=== PATIENT | female | born 1965 | race Caucasian/White ===

== ENCOUNTER 2017-02-14 19:18 | Inpatient (IN) | payer OTHER ==
[~2017-02-14] VITALS: Ht 162.6 cm; Wt 64.4 kg
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
--- NOTE | 2017-02-14 20:06 | NUR ---
X-RAY AT BEDSIDE
[2017-02-14 21:09] LABS: CALCIUM 8.8 mg/dL (8.5-10.1); CARBON DIOXIDE 26.8 mmol/L (21-32); CHLORIDE SERUM 103 mmol/L (98-107); CREATININE SERUM 0.9 mg/dL (0.6-1.0); GFR1 > 60 mL/min; GLUCOSE SERUM 116 mg/dL (74-106); POTASSIUM SERUM 3.6 mmol/L (3.5-5.1); SODIUM SERUM 138 mmol/L (136-145)
[2017-02-14 21:13] LABS: ALBUMIN 3.4 g/dL (3.4-5.0); ALKALINE PHOSPHATASE 45 U/L (46-116); ALT/SGPT 24 U/L (14-59); AST/SGOT 21 U/L (15-37); BILIRUBIN TOTAL 0.31 mg/dL (0.20-1.00); CHOLESTEROL 177 mg/dL (<200); TOTAL PROTEIN, SERUM 6.9 g/dL (6.4-8.2)
[2017-02-14 21:14] LABS: HDL CHOLESTEROL 78 mg/dL (40-60)
--- NOTE | 2017-02-14 21:24 | NUR ---
PT TAKEN TO CT VIA [facility]
--- NOTE | 2017-02-14 21:36 | NUR ---
PT RETURNED FROM CT
[2017-02-14 21:43] LABS: AMPHETAMINE QUAL UR NONE DETECTED (NEG <=1000)
--- NOTE | 2017-02-14 22:49 | NUR ---
PT AAOX4, BREATHING EVEN AND UNLABORED. PT IN NO ACUTE DISTRESS. FAMILY BY BEDSIDE.
--- NOTE | 2017-02-14 22:49 | NUR ---
MEDICATED PT PER E-MAR. PT TOLERATED
[2017-02-14] MEDS ORDERED: CHILDREN'S100 MG/52 (23:27)
[2017-02-14] MEDS ORDERED: [UNRECOGNIZED DRUG - OTHER] (23:30)
[2017-02-15] VITALS (7 sets, daily range): BP systolic 95–119; BP diastolic 51–67; Ht 162.6 cm; Wt 64.4 kg
--- NOTE | 2017-02-15 00:01 | NUR ---
REPORT GIVEN TO CESAR BHATTI FOR CONTINUITY OF CARE IN [facility]
--- NOTE | 2017-02-15 00:58 | NUR ---
PATIENT ARRIVED TO UNIT VIA [facility] FROM ED.
--- NOTE | 2017-02-15 01:06 | NUR ---
PT IN BED, NEW ADMIT FROM ED. CAME IN DUE TO SYNCOPE (STATED PASSED OUT FOR ABOUT 2 MINUTES) AND SEIZURE FOR ABOUT 1 MINUTE. AAOX4. C/O DIZZINESS. SPEECH IS CLEAR. NO SOB NOTED. DENIES CHEST PAIN/PRESSURE, SB-SR ON THE MONITOR. C/O NAUSEA. DENIES ABDOMINAL PAIN. GENERALIZED WEAKNESS NOTED. PADDED SIDE RAILS UP. CALL LIGHT ON REACH. ENDORSED TO PRIMARY NURSE CESAR FOR CONTINUITY OF CARE.
--- NOTE | 2017-02-15 02:14 | NUR ---
SEIZURE PRECAUTIONS PADS PUT IN PLACE.
[2017-02-15 03:01] LABS: UA SPECIFIC GRAVITY 1.015 (1.005-1.035); microscopic required? YES; urine erythrocyte NEGATIVE (NEGATIVE)
[2017-02-15 03:25] LABS: MAGNESIUM 2.2 mg/dL (1.8-2.4); PHOSPHOROUS 2.5 mg/dL (2.5-4.9)
[2017-02-15 03:26] LABS: CHOLESTEROL/HDL RATIO 2.3
--- NOTE | 2017-02-15 07:15 | NUR ---
PT WAS ENDORSE TO ME THIS MORNING. AA/O X4, [place] SPK. LAYING IN BED RESTING. SEIZURE PERC IN PLACE. TELE 19. BREATHING EVEN AND UNLABORED, NO RESP DISTRESS OR SOB NOTED. LUNGS CLEAR ON RA. DENIES ANY SYNCOPE AT THIS TIME OR DISCOMFORT. IV TO THE LAC INTACT AND PATENT. WILL CONTINUE PLAN OF CARE. CALL LIGHT IN REACH. BED IN LOW POSITION.
[2017-02-15 07:50] LABS: BASOPHIL % 0.6 % (0-2); PLATELET COUNT 249 x10^3mcL (130-400); RED CELL DISTRIBUTION WIDTH 13.7 % (11.5-14.5)
[2017-02-15 07:52] LABS: CALCIUM 8.6 mg/dL (8.5-10.1); CHLORIDE SERUM 107 mmol/L (98-107); CREATININE SERUM 0.8 mg/dL (0.6-1.0); GFR1 > 60 mL/min; GLUCOSE SERUM 94 mg/dL (74-106); POTASSIUM SERUM 4.3 mmol/L (3.5-5.1); SODIUM SERUM 139 mmol/L (136-145)
--- NOTE | 2017-02-15 10:57 | NUR ---
C/O KENDRICK/ BODY PAIN 11/07. WILL MEDICATE PER EMAR
--- NOTE | 2017-02-15 12:50 | NUR ---
PT C/O N/V MEDICATED PER EMAR.
--- NOTE | 2017-02-15 16:25 | NUR ---
PT C/O KENDRICK PAIN 10/07, MEDICATED PER EMAR.
--- NOTE | 2017-02-15 18:20 | NUR ---
PT SITTING UP IN BED. STATED THE PAIN MED HEPLED RELIEVED KENDRICK. DENIES ANY SYNCOPE AT THIS TIME. NO ACUTE CHANGES AT THIS TIME. TOLERATED 100% OF HER DINNER. IV TO THE LAC INTACT AND PATENT. CALL LGIHT IN REACH. WILL ENDORSE PT TO INCOMING RN.
--- NOTE | 2017-02-15 19:50 | NUR ---
PT A/O X4 WITH FAMILY AT BEDSIDE. PT DENIES DIZZINESS AT THIS TIME, SEIZURE PRECAUTIONS IN PLACE. TELE #19, NSR AT 75M DENIES CHEST PAIN. PULSES PALPABLE, NO EDEMA NOTED. LUNG SOUNDS CTA, BREATHING FREELY ON RA, DENIES SOB, NO RESP DISTRESS OBSERVED. ABD SOFT AND NONDISTENDED, BOWEL TONES ACTIVE, DENIES N/V. VOIDS ADEQUATELY. GENERALIZED WEAKNESS, AMBULATORY. SKIN IS INTACT. DENIES PAIN AT THIS TIME. NS @ 80 TO LAC INFUSING WELL. BED IN LOWEST SETTING, SIDE RAILS UP X2, CALL LIGHT WITHIN REACH. WILL CONTINUE TO MONITOR.
--- NOTE | 2017-02-16 00:23 | NUR ---
PT ASLEEP AT THIS TIME, BREATHING IS EVEN AND UNLABORED, NO RESP DISTRESS NOTED. NO SIGNS OF PAIN OBSERVED. IVF INFUSING WELL. CALL LIGHT WITHIN REACH. WILL CONTINUE TO MONITOR.
[2017-02-16 05:56] VITALS: BP 102/62
--- NOTE | 2017-02-16 05:59 | NUR ---
PT ASLEEP AT THIS TIME. BREATHING IS EVEN AND UNLABORED, NO RESP DISTRESS NOTED. NO SIGNS OF PAIN OBSERVED. IVF INFUSING WELL. SEIZURE PRECAUTIONS MAINTAINED, NO SEIZURE ACTIVITY NOTED DURING SHIFT. CALL LIGHT WITHIN REACH. WILL ENDORSE CARE TO AM NURSE.
[2017-02-16 06:28] LABS: CALCIUM 8.2 mg/dL (8.5-10.1); CARBON DIOXIDE 29.3 mmol/L (21-32); CHLORIDE SERUM 108 mmol/L (98-107); CREATININE SERUM 0.8 mg/dL (0.6-1.0); GFR1 > 60 mL/min; GLUCOSE SERUM 78 mg/dL (74-106); MAGNESIUM 1.9 mg/dL (1.8-2.4); PHOSPHOROUS 3.7 mg/dL (2.5-4.9); POTASSIUM SERUM 4.3 mmol/L (3.5-5.1); SODIUM SERUM 141 mmol/L (136-145)
[2017-02-16 06:46] LABS: BASOPHIL % 0.5 % (0-2); PLATELET COUNT 236 x10^3mcL (130-400); RED CELL DISTRIBUTION WIDTH 13.9 % (11.5-14.5)
--- NOTE | 2017-02-16 07:53 | NUR ---
PT SLEEPING, RESPIRATIONS NOTED. IN NO APPARENT DISTRESS. BED IN LOWEST POSITION, CALL LIGHT WITHIN REACH, 2 RAILS UP. TELE 19.
[2017-02-16 10:00] VITALS: BP 115/55
--- NOTE | 2017-02-16 10:06 | NUR ---
PT AWAKE, ALERT, ORIENTED. DENIES PAIN, PRESSURE, SOB. DENIES DIZZINESS. LAYING IN BED WATCHING TV. BED IN LOWEST POSITION, CALL LIGHT WITHIN REACH, 2 RAILS UP.
--- NOTE | 2017-02-16 11:43 | NUR ---
PT LAYING IN BED, DENIES PAIN, NO N/V. WATCHING TV. BED IN LOWEST POSITION, CALL LIGHT WITHIN REACH, 2 RAILS UP.
[2017-02-16 12:29] VITALS: BP 115/55
[2017-02-16] MEDS ORDERED: TRAMADOL HCL50 MG PO (12:31)
[2017-02-16] MEDS ORDERED: ZOF4 PO (12:43)
[2017-02-16] MEDS ORDERED: MOT800 PO (12:48)
--- NOTE | 2017-02-16 13:11 | NUR ---
DISCHARGE INFORMATION PROVIDED TO PATIENT, PATIENT VERBALIZES UNDERSTANDING. IV DC'D, CATHETER TIP INTACT, WHEELCHAIR PATIENT DOWN VIA WHEELCHAIR TO FRONT LOBBY. TO BRAZING FURNACE OPERATOR.
== END 2017-02-16 13:55 | disposition home or self-care (01) | DRG 101 ==
LOC: ED 19:18 → DU 22:44
PROVIDERS: Emergency Medicine; ADMIT Family Medicine Sports Medicine
DX: R56.9 Unspecified convulsions (principal); N39.0 Urinary tract infection, site not specified; G90.8 Other disorders of autonomic nervous system; Z88.0 Allergy status to penicillin; Z88.8 Allergy status to other drugs, medicaments and biological substances
CPT/HCPCS: 83880; J1885; J1956; J2405; J7030; J8597; Q0092